=== PATIENT | female | born 2000 | race Hispanic/Latino ===

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

== ENCOUNTER 2020-06-08 21:44 | Emergency (ER) | payer BC ==
[2020-06-08] MEDS ORDERED: Ondansetron ODT 4 MG TAB ONE (22:23)
[2020-06-09 19:23] LABS: SARS-CoV-2 MS2 Positive; SARS-CoV-2 N Gene Positive; SARS-CoV-2 S Gene Positive; SARS-CoV-2 by NAA DETECTED (NotDetected); SARS-CoV-2 orf1ab Positive
== END 2020-06-08 22:41 | disposition home or self-care (01) ==
LOC: NAV ERS 21:44
DX: U07.1 COVID-19 (principal)
CPT/HCPCS: 87635; 87804; 99283; Q0162; U0003

== ENCOUNTER 2020-10-19 14:54 | Emergency (ER) | payer BC ==
[2020-10-20 06:51] LABS: SARS-CoV-2 PCR by NAA Not Detected (NotDetected)
== END 2020-10-19 15:55 | disposition home or self-care (01) ==
LOC: NAV ERS 14:54
DX: J06.9 Acute upper respiratory infection, unspecified (principal); Z20.822 Contact with and (suspected) exposure to COVID-19
CPT/HCPCS: 87635; 99283; U0003; U0005

== ENCOUNTER 2021-02-08 20:28 | Emergency (ER) | payer BC | END 2021-02-08 21:32 | disposition home or self-care (01) | LOC: NAV ERS 20:28 | DX: S93.401A Sprain of unspecified ligament of right ankle, initial encounter (principal); Z79.899 Other long term (current) drug therapy; X50.1XXA Overexertion from prolonged static or awkward postures, initial encounter ==